=== PATIENT | male | born 1965 | race Caucasian/White ===

== ENCOUNTER 2020-08-08 09:10 | Emergency (ER) | payer MEDICAID ==
[~2020-08-08] VITALS: Ht 177.8 cm; Wt 113.4 kg
[2020-08-08 09:59] VITALS: BP 156/71
--- NOTE | 2020-08-08 11:10 | NUR ---
Patient transferred to bed 3 via wheelchair by tech. RN evaluating the patient at bedside.
--- NOTE | 2020-08-08 11:20 | NUR ---
PATIENT 54 Y/O BIB SELF WITH C/O L FOOT PAIN SINCE LAST NIGHT. PATIENT STATES PAIN 10/10, SHARP, AND NON-RADAITING. PER PATIENT STATES," FEELS LIKE I'M STEPPING ON A GOLF BALL." PATIENT DENIES ANY INJURY TO FOOT. PER PATIENT OTC MEDICATIONS INEFFECTIVE. PATIENT STATES IN NOVEMBER R LEG "NO LONGER WORKED AND I COULD WALK ANYMORE." PATIENT STATES WENT TO PRIMARY TO R/O MS. PATIENT UNAWARE OF RESULTS AT THIS TIME. MEDHX: DM TYPE II, HTN NKA
[2020-08-08] MEDS ORDERED: KETOROLAC 30 MG/ML VIAL IM ONE (11:45)
--- NOTE | 2020-08-08 11:53 | NUR ---
XRAY AT BEDSIDE.
[2020-08-08] MEDS ORDERED: ACET-8386 PO (12:22)
[2020-08-08 12:39] VITALS: BP 156/98
--- NOTE | 2020-08-08 12:39 | NUR ---
Patient discharged with v/s stable. Written and verbal after care instructions given and explained. Patient alert, oriented and verbalized understanding of instructions. Wheel Chair Assisted with to car. All questions addressed prior to discharge. ID band removed. Patient advised to follow up with PMD. Rx of HYDROCODONE/ACETAMINOPHEN 5-325MG given. Patient educated on indication of medication including possible reaction and side effects. Opportunity to ask questions provided and answered.
== END 2020-08-08 12:39 | disposition home or self-care (01) ==
LOC: MED 09:10
DX: M25.872 Other specified joint disorders, left ankle and foot (principal); E11.9 Type 2 diabetes mellitus without complications; I10 Essential (primary) hypertension; Z79.899 Other long term (current) drug therapy
CPT/HCPCS: 73630; 96372; 99283; J1885